=== PATIENT | female | born 1955 | race Caucasian/White ===

== ENCOUNTER 2017-11-10 09:40 | Outpatient (CLI) | payer OTHER | END 2017-11-10 09:49 | disposition home or self-care (01) | LOC: RAD 501 09:40 | DX: J45.21 Mild intermittent asthma with (acute) exacerbation (principal) ==

== ENCOUNTER 2017-12-28 11:04 | Outpatient (CLI) | payer OTHER | END 2017-12-28 11:05 | disposition home or self-care (01) | LOC: LAB 11:04 | DX: N30.00 Acute cystitis without hematuria (principal); R82.79 Other abnormal findings on microbiological examination of urine ==

== ENCOUNTER 2018-01-10 08:55 | Outpatient (CLI) | payer OTHER | END 2018-01-10 09:01 | disposition home or self-care (01) | LOC: TOM 08:55 | DX: N39.0 Urinary tract infection, site not specified (principal); N81.11 Cystocele, midline ==

== ENCOUNTER 2018-10-12 07:25 | Outpatient (CLI) | payer OTHER | END 2018-10-12 07:29 | disposition home or self-care (01) | LOC: LAB 07:25 | DX: D64.89 Other specified anemias (principal); N39.0 Urinary tract infection, site not specified; E11.9 Type 2 diabetes mellitus without complications; E78.00 Pure hypercholesterolemia, unspecified; E03.8 Other specified hypothyroidism; E55.9 Vitamin D deficiency, unspecified ==

== ENCOUNTER 2019-05-11 07:45 | Outpatient (CLI) | payer OTHER | END 2019-05-11 08:42 | disposition home or self-care (01) | LOC: LAB 07:45 | DX: J15.7 Pneumonia due to Mycoplasma pneumoniae (principal); J11.1 Influenza due to unidentified influenza virus with other respiratory manifestations; J45.21 Mild intermittent asthma with (acute) exacerbation ==

== ENCOUNTER → 2019-09-25 06:50 | Outpatient (CLI) | payer OTHER | END | disposition home or self-care (01) | LOC: LAB 06:50 | DX: D64.89 Other specified anemias (principal); N39.0 Urinary tract infection, site not specified; E11.9 Type 2 diabetes mellitus without complications; E78.00 Pure hypercholesterolemia, unspecified; E03.8 Other specified hypothyroidism; E55.9 Vitamin D deficiency, unspecified; Z12.11 Encounter for screening for malignant neoplasm of colon; N80.8 Other endometriosis ==

== ENCOUNTER 2021-02-09 07:05 | Outpatient (CLI) | payer OTHER | END 2021-02-09 07:19 | disposition home or self-care (01) | LOC: LAB 07:05 | PROVIDERS: ATTEND Obstetrics & Gynecology | DX: D64.89 Other specified anemias (principal); E11.8 Type 2 diabetes mellitus with unspecified complications; N39.0 Urinary tract infection, site not specified; E78.00 Pure hypercholesterolemia, unspecified; E03.8 Other specified hypothyroidism; E55.9 Vitamin D deficiency, unspecified; K76.89 Other specified diseases of liver ==

== ENCOUNTER 2021-03-12 13:59 | Outpatient (CLI) | payer OTHER | END 2021-03-12 14:00 | disposition home or self-care (01) | LOC: NUCLEAR 13:59 | PROVIDERS: ATTEND Obstetrics & Gynecology | DX: M81.0 Age-related osteoporosis without current pathological fracture (principal) ==

== ENCOUNTER → 2021-03-12 | Outpatient (CLI) | payer OTHER | END | disposition home or self-care (01) | LOC: RAD 13:37 | PROVIDERS: ATTEND Orthopaedic Surgery | DX: M16.12 Unilateral primary osteoarthritis, left hip (principal) ==

== ENCOUNTER 2021-08-06 06:51 | Outpatient (CLI) | payer OTHER | END 2021-08-06 06:52 | disposition home or self-care (01) | LOC: LAB 06:51 | PROVIDERS: ATTEND Internal Medicine Gastroenterology | DX: E03.8 Other specified hypothyroidism (principal); E55.9 Vitamin D deficiency, unspecified; E78.49 Other hyperlipidemia ==

== ENCOUNTER 2021-10-12 10:20 | Outpatient (CLI) | payer OTHER | END 2021-10-12 10:26 | disposition home or self-care (01) | LOC: RAD 10:20 | PROVIDERS: ATTEND Orthopaedic Surgery Sports Medicine | DX: M17.0 Bilateral primary osteoarthritis of knee (principal); M25.561 Pain in right knee; M25.562 Pain in left knee ==

== ENCOUNTER 2022-02-08 10:40 | Outpatient (CLI) | payer OTHER | END 2022-02-08 10:46 | disposition home or self-care (01) | LOC: RAD 10:40 | PROVIDERS: ATTEND Orthopaedic Surgery Sports Medicine | DX: Z96.652 Presence of left artificial knee joint (principal) ==

== ENCOUNTER → 2022-11-29 | Outpatient (CLI) | payer OTHER | END | disposition home or self-care (01) | LOC: RAD 14:11 | PROVIDERS: ATTEND Physical Medicine & Rehabilitation | DX: M54.6 Pain in thoracic spine (principal); M54.59 Other low back pain; M16.11 Unilateral primary osteoarthritis, right hip; M16.2 Bilateral osteoarthritis resulting from hip dysplasia ==

== ENCOUNTER 2023-01-10 12:23 | Outpatient (CLI) | payer OTHER | END 2023-01-10 12:31 | disposition home or self-care (01) | LOC: RAD 12:23 | DX: R05.8 Other specified cough (principal) ==

== ENCOUNTER 2023-03-18 10:53 | Outpatient (CLI) | payer OTHER | END 2023-03-18 10:55 | disposition home or self-care (01) | LOC: NUCLEAR 10:53 | DX: M81.0 Age-related osteoporosis without current pathological fracture (principal) ==

== ENCOUNTER 2023-08-01 06:10 | Outpatient (CLI) | payer OTHER ==
[2023-08-01 06:57] LABS: HEMATOCRIT 40.2 % (36.0-45.00); HEMOGLOBIN 13.5 g/dL (12.0-15.00); MEAN CORPUSCULAR HEMOGLOBIN 29.8 pg (27.00-32.0); MEAN CORPUSCULAR HGB CONC 33.5 g/dl (32.0-36.0); PLATELET COUNT 189 K/uL (150-450); RED BLOOD COUNT 4.52 M/uL (4.00-6.00); RED CELL DISTRIBUTION WIDTH 15.2 % (11.5-14.5)
[2023-08-01 07:25] LABS: INR 0.98; PARTIAL THROMBOPLASTIN TIME 28.4 SECONDS (22.0-34.0); PROTHROMBIN TIME 10.3 SECONDS (9.0-11.5)
[2023-08-01 07:28] LABS: ALBUMIN 3.9 gm/dL (3.4-5.0); BILIRUBIN TOTAL 0.5 mg/dL (0.3-1.2); CALCIUM 9.7 mg/dL (8.5-10.1); CREATININE SERUM 0.65 mg/dL (0.55-1.02); GFR 90.37; GLOBULINA 3.1 G/DL (2.4-3.5); POTASSIUM 4.51 mEq/L (3.5-5.1)
[2023-08-01 07:32] LABS: URINE APPEARANCE Clear; URINE BILIRRUBIN Negative (NEGATIVE); URINE BLOOD Negative; URINE COLOR Yellow; URINE GLUCOSE Negative (NEGATIVE); URINE LEUKOCYTE Moderate; URINE NITRATE Negative; URINE PROTEIN Negative (NEGATIVE); URINE UROBILINOGEN 0.2 E.U./dl
[2023-08-01 07:35] LABS: URINE BACTERIA 1472.8 uL (0.0-1933); URINE EPITHELIAL CELLS 27.8 uL (0.0-38.8); URINE RBC 7.1 uL (0.0-20.8); URINE WBC 130.1 uL (0.0-23.2)
== END 2023-08-01 06:11 | disposition home or self-care (01) ==
LOC: LAB 06:10
PROVIDERS: ATTEND Surgery Plastic and Reconstructive Surgery
DX: Z01.811 Encounter for preprocedural respiratory examination (principal); N62 Hypertrophy of breast

== ENCOUNTER 2023-12-12 11:35 | Outpatient (CLI) | payer OTHER | END 2023-12-12 11:43 | disposition home or self-care (01) | LOC: MRI 11:35 | PROVIDERS: ATTEND Specialist | DX: M54.16 Radiculopathy, lumbar region (principal) | CPT/HCPCS: 72148 ==

== ENCOUNTER 2023-12-19 10:34 | Outpatient (CLI) | payer OTHER | END 2023-12-19 10:44 | disposition home or self-care (01) | LOC: RAD 10:34 | PROVIDERS: ATTEND Physical Medicine & Rehabilitation Pain Medicine | DX: M47.817 Spondylosis without myelopathy or radiculopathy, lumbosacral region (principal); M25.551 Pain in right hip; M25.552 Pain in left hip ==

== ENCOUNTER 2024-01-20 09:57 | Outpatient (CLI) | payer OTHER | END 2024-01-20 10:07 | disposition home or self-care (01) | LOC: RAD 09:57 | PROVIDERS: ATTEND Internal Medicine Pulmonary Disease | DX: J30.1 Allergic rhinitis due to pollen (principal); J45.31 Mild persistent asthma with (acute) exacerbation ==

== ENCOUNTER 2024-05-21 10:38 | Outpatient (CLI) | payer OTHER | END 2024-05-21 10:43 | disposition home or self-care (01) | LOC: RAD 10:38 | DX: R07.9 Chest pain, unspecified (principal) ==

== ENCOUNTER → 2024-06-26 11:28 | Outpatient (CLI) | payer OTHER | END | disposition home or self-care (01) | LOC: RAD 11:28 | PROVIDERS: ATTEND Physical Medicine & Rehabilitation Pain Medicine | DX: M25.552 Pain in left hip (principal) ==

== ENCOUNTER 2024-07-30 08:13 | Outpatient (CLI) | payer OTHER | END 2024-07-30 08:14 | disposition home or self-care (01) | LOC: TOM 08:13 → RAD 08:13 → TOM 08:14 → RAD 08:14 | DX: R06.02 Shortness of breath (principal); I20.9 Angina pectoris, unspecified; R00.2 Palpitations; R00.0 Tachycardia, unspecified; I73.9 Peripheral vascular disease, unspecified; I87.2 Venous insufficiency (chronic) (peripheral) | CPT/HCPCS: 71260; Q9965 ==

== ENCOUNTER 2024-07-31 10:22 | Outpatient (CLI) | payer OTHER | END 2024-07-31 10:23 | disposition home or self-care (01) | LOC: NUCLEAR 10:22 | DX: I73.9 Peripheral vascular disease, unspecified (principal); I87.2 Venous insufficiency (chronic) (peripheral) ==

== ENCOUNTER 2024-08-01 10:30 | Outpatient (CLI) | payer OTHER | END 2024-08-01 10:31 | disposition home or self-care (01) | LOC: NUCLEAR 10:30 | DX: I73.9 Peripheral vascular disease, unspecified (principal); I87.2 Venous insufficiency (chronic) (peripheral) ==

== ENCOUNTER 2025-04-01 11:14 | Outpatient (CLI) | payer OTHER | END 2025-04-01 11:15 | disposition home or self-care (01) | LOC: NUCLEAR 11:14 | PROVIDERS: ATTEND Obstetrics & Gynecology | DX: M81.0 Age-related osteoporosis without current pathological fracture (principal) ==

== ENCOUNTER 2025-04-17 07:29 | Outpatient (CLI) | payer OTHER | END 2025-04-17 07:36 | disposition home or self-care (01) | LOC: SONOGRAMA 07:29 | PROVIDERS: ATTEND Internal Medicine Gastroenterology | DX: R10.11 Right upper quadrant pain (principal); R10.2 Pelvic and perineal pain ==

== ENCOUNTER 2025-05-16 10:35 | Outpatient (CLI) | payer OTHER | END 2025-05-16 10:42 | disposition home or self-care (01) | LOC: SONOGRAMA 10:35 | PROVIDERS: ATTEND Internal Medicine Gastroenterology | DX: E04.8 Other specified nontoxic goiter (principal) ==